=== PATIENT | female | born 1980 | race Caucasian/White ===

== ENCOUNTER 2017-11-03 13:16 | Observation (INO) ==
[2017-11-03 13:53] VITALS: RESP 16
--- NOTE | 2017-11-03 14:42 | Emergency Department Report ---
Female Urogenital HPI - General Chief complaint: Urogenital-Female Stated complaint: uti Time Seen by Provider: 11/03/17 14:10 Source: patient Mode of arrival: ambulatory Limitations: no limitations - History of Present Illness HPI Narrative: Pt presents with a UTI that was diagnosed 4 days ago. Pt began Bactrim 3 days ago and has been taking it regularly. Pt reports she is noting increased pain, bleeding, and a mucous in her urine. She denies fever, N/V/D but does report an increased weakness. MD Complaint: "UTI" Onset (ago): day(s) Urinary Symptoms: dysuria, urgency, frequency, hematuria, flank pain Associated symptoms: denies other symptoms - Related Data Home Medications Medication Instructions Recorded Confirmed Acetaminophen [Acetaminophen Extra 1,000 mg PO Q6H PRN 10/30/17 11/03/17 Strength] Diphenoxylate HCl/Atropine 1 each PO QID PRN 10/30/17 11/03/17 [Lomotil 2.5-0.025 mg Tablet] Multivitamin [Multivitamins] 1 tab PO DAILY 10/30/17 11/03/17 Dicyclomine [Bentyl] 10 mg PO BID PRN 11/03/17 11/03/17 Lidocaine For Magic Mouthwash 5 ml PO QID PRN 11/03/17 11/03/17 [Xylocaine Viscous] Previous Rx's Medication Instructions Recorded Hydrocodone/APAP 5/325 [Evans 1 - 2 tab PO Q4-6HR PRN #20 tab 10/30/17 5/325] Sulfamethox/Tmp [Bactrim Ds] 1 tab PO BID #14 tab 10/30/17 Allergies Allergy/AdvReac Type Severity Reaction Status Date / Time amoxicillin AdvReac Severe Hives Verified 11/03/17 14:00 Review of Systems All systems: reviewed and negative except as stated Constitutional: Reports: as per HPI Gastrointestinal: Reports: as per HPI Genitourinary: Reports: as per HPI Musculoskeletal: Reports: as per HPI PFSH Patient Stated Medical History Other Cardiology Yes: dextrocardia Ulcer Yes: more of stomach removed, corrected this Now UNKNOWN - STATES POSSIBLY Other Reproductive Yes: miscarriage Surgical History: *Gastric surgery x2 - Social History Smoking status: Former smoker Physical Exam - Limitations Limitations: no limitations - General General appearance: alert, in no apparent distress - Normal Exams: Head:: Normocephalic without trauma Eyes:: Pupils are PERRLA w/ EOMI Chest/Respirations:: Clear all rosas, with good airflow Cardiovascular:: Regular rate and rhythm, without murmur or gallop Abdomen:: Bowel sounds positive, soft, non-tender, non-distended Musculoskeletal:: No tenderness, or deformity noted, good range of motion, all extremities Integumentary:: No rashes Neurological:: Patient is alert, and oriented, cranial nerves, motor/sensory/ cerebellar, exams w/o gross deficits, to observation Psychiatric:: Patient exhibits, appropriate attention, emotion and affect Course Vital Signs Temperature 97.9 F 11/03/17 13:19 Pulse Rate 98 11/03/17 13:19 Respiratory Rate 18 11/03/17 13:19 Blood Pressure 125/72 11/03/17 13:19 Pulse Oximetry 99 11/03/17 13:19 Temperature 99 F 11/03/17 13:52 Pulse Rate 84 11/03/17 19:13 Respiratory Rate 16 11/03/17 17:16 Blood Pressure 120/69 11/03/17 19:13 Pulse Oximetry 99 11/03/17 19:13 Urogenital-Female - MDM Narrative Medical decision making narrative: Pt labs reviewed and compared with results from last Thursday. Noted improvement in renal function and urine however slight bump in WBC in addition to increase in pt symptoms and discomfort. PT given 1L NS as well as a gram of Rocephin and Toradol for pain. Results discussed with Dr Campbell who asks for lactate level to be obtained. Lactate called to Dr Campbell who asks to call telemed for admission. Spoke with Dr Young who will admit pt observation at this time. Plan discussed with pt and family who voice understanding of care. - Differential Diagnosis Likely: urinary tract infection, cervicitis, cystitis - Lab Data Attestation: I reviewed the patient's lab results. Result diagrams: 11/03/17 15:11/03/17 15: Lab Results 11/03/17 11/03/17 11/03/17 Range/Units 15: 15: 16:03 WBC 18.1 H (4.5-11.0) T/MM3 RBC 3.55 L (4.00-5.20) M/MM3 Hgb 10.1 L (12-16) GM/DL Hct 30.2 L (36-46) % MCV 85.1 (80-100) UM3 MCH 28.5 (26-34) UUG MCHC 33.4 (31-37) GM/DL RDW Std Deviation 50.7 H (36.9-50.2) FL Plt Count 126 L D (130-400) T/MM3 MPV 11.2 (9.4-12.4) UM3 Immature Gran % (Auto) Not performed Neut % (Auto) Not performed Lymph % (Auto) Not performed [place] % (Auto) Not performed Eos % (Auto) Not performed Baso % (Auto) Not performed Neut # (Auto) Not performed Lymph # (Auto) Not performed [place] # (Auto) Not performed Eos # (Auto) Not performed Baso # (Auto) Not performed Abs Immat Gran (auto) Not performed Neutrophils % (Manual) 80.0 H (33-66) % Band Neutrophils % 4.0 (0-6) % Lymphocytes % (Manual) 9.0 L (23-45) % Monocytes % (Manual) 7.0 (0-9.0) % Neutrophils # (Manual) 14.5 H (1.8-7.7) T/MM3 Band Neutrophils # 0.7 T/MM3 Lymphocytes # (Manual) 1.6 (1-4.8) T/MM3 Monocytes # (Manual) 1.3 H (0-0.8) T/MM3 Poikilocytosis 1+ Anisocytosis 1+ RBC Morph Comment Abnormal Turbidity < 20 (0-20) Sodium 142 (134-144) MEQ/L Potassium 4.1 (3.6-5) MEQ/L Chloride 112 H (98-107) MEQ/L Carbon Dioxide 18 L (22-30) MEQ/L Anion Gap 12 (5-15) MEQ/L BUN 15.0 (7-17) MG/DL Creatinine 0.7 (0.7-1.2) MG/DL GFR Calculation 95 BUN/Creatinine Ratio 21 (6-26) RATIO Glucose 74 (65-110) MG/DL Calculated Osmolality 273 (261-280) MOSM/KG Calcium 8.5 (8.4-10.2) MG/DL Total Bilirubin 0.50 (0.20-1.30) MG/DL Icterus Index < 2 (0-7) AST 14 (14-36) U/L ALT 20 (9-52) U/L Alkaline Phosphatase 238 H (38-126) U/L Total Protein 6.6 (6.3-8.2) G/DL Albumin 2.8 L (3.5-5.0) G/DL Globulin 3.8 H (2.4-3.6) G/DL Albumin/Globulin Ratio 0.7 L (1.1-2.2) RATIO Plasma Lactate (0.6-2.2) MMOL/L Specimen Hemolysis 17 (0-25) Ur Collection Type Urine, void-cc/notcc Urine Color Yellow (YELLOW) Urine Clarity Sl cloudy Urine pH 6.0 (5.0-8.0) Ur Specific [place] 1.020 (1.015-1.025) Urine Protein 1+ A (NEGATIVE) Urine Glucose (UA) Negative (NEGATIVE) Urine Ketones 2+ A (NEGATIVE) Urine Occult Blood 3+ A (NEGATIVE) Urine Nitrate Negative (NEGATIVE) Urine Bilirubin 1+ A (NEGATIVE) Urine Urobilinogen 0.2 (NORMAL) EU/DL Ur Leukocyte Esterase 2+ A (NEGATIVE) Urine RBC 10-20 H (0-3) /HPF Urine WBC 30-50 H (0-5) /HPF Ur Squamous Epith Cells 0-5 Urine Bacteria None seen (NEGATIVE) Ur Culture Indicated? Cult not indicated 11/03/17 Range/Units 18:18 WBC (4.5-11.0) T/MM3 RBC (4.00-5.20) M/MM3 Hgb (12-16) GM/DL Hct (36-46) % MCV (80-100) UM3 MCH (26-34) UUG MCHC (31-37) GM/DL RDW Std Deviation (36.9-50.2) FL Plt Count (130-400) T/MM3 MPV (9.4-12.4) UM3 Immature Gran % (Auto) Neut % (Auto) Lymph % (Auto) [place] % (Auto) Eos % (Auto) Baso % (Auto) Neut # (Auto) Lymph # (Auto) [place] # (Auto) Eos # (Auto) Baso # (Auto) Abs Immat Gran (auto) Neutrophils % (Manual) (33-66) % Band Neutrophils % (0-6) % Lymphocytes % (Manual) (23-45) % Monocytes % (Manual) (0-9.0) % Neutrophils # (Manual) (1.8-7.7) T/MM3 Band Neutrophils # T/MM3 Lymphocytes # (Manual) (1-4.8) T/MM3 Monocytes # (Manual) (0-0.8) T/MM3 Poikilocytosis Anisocytosis RBC Morph Comment Turbidity (0-20) Sodium (134-144) MEQ/L Potassium (3.6-5) MEQ/L Chloride (98-107) MEQ/L Carbon Dioxide (22-30) MEQ/L Anion Gap (5-15) MEQ/L BUN (7-17) MG/DL Creatinine (0.7-1.2) MG/DL GFR Calculation BUN/Creatinine Ratio (6-26) RATIO Glucose (65-110) MG/DL Calculated Osmolality (261-280) MOSM/KG Calcium (8.4-10.2) MG/DL Total Bilirubin (0.20-1.30) MG/DL Icterus Index (0-7) AST (14-36) U/L ALT (9-52) U/L Alkaline Phosphatase (38-126) U/L Total Protein (6.3-8.2) G/DL Albumin (3.5-5.0) G/DL Globulin (2.4-3.6) G/DL Albumin/Globulin Ratio (1.1-2.2) RATIO Plasma Lactate 0.6 (0.6-2.2) MMOL/L Specimen Hemolysis (0-25) Ur Collection Type Urine Color (YELLOW) Urine Clarity Urine pH (5.0-8.0) Ur Specific [place] (1.015-1.025) Urine Protein (NEGATIVE) Urine Glucose (UA) (NEGATIVE) Urine Ketones (NEGATIVE) Urine Occult Blood (NEGATIVE) Urine Nitrate (NEGATIVE) Urine Bilirubin (NEGATIVE) Urine Urobilinogen (NORMAL) EU/DL Ur Leukocyte Esterase (NEGATIVE) Urine RBC (0-3) /HPF Urine WBC (0-5) /HPF Ur Squamous Epith Cells Urine Bacteria (NEGATIVE) Ur Culture Indicated? Disposition Clinical Impression: Urinary tract infection Qualifiers: Urinary tract infection type: acute pyelonephritis Qualified Code(s): N10 - Acute pyelonephritis Disposition: To [facility] [place] Acute Care Condition: Stable Prescriptions: No Action Multivitamin [Multivitamins] 1 tab PO DAILY Hydrocodone/APAP 5/325 [Evans 5/325] 1 - 2 tab PO Q4-6HR PRN #20 tab PRN Reason: pain Sulfamethox/Tmp [Bactrim Ds] 1 tab PO BID #14 tab Lidocaine For Magic Mouthwash [Xylocaine Viscous] 5 ml PO QID PRN PRN Reason: Prn Orders Dicyclomine [Bentyl] 10 mg PO BID PRN PRN Reason: Prn Orders Diphenoxylate HCl/Atropine [Lomotil 2.5-0.025 mg Tablet] 1 each PO QID PRN PRN Reason: Diarrhea Acetaminophen [Acetaminophen Extra Strength] 1,000 mg PO Q6H PRN PRN Reason: Pain Referrals: Delbert Quintero DO [Family Provider] - Time of Disposition: 19:35 - Seen By: midlevel
[2017-11-03] MEDS ORDERED: CEFTRIAXONE (ER USE ONLY) 1 GM in NS 100 ML IV ONE (16:27)
[2017-11-03] MEDS ORDERED: NS 1,000 ML IV ONE (16:28)
[2017-11-03] MEDS: SALINE FLUSH 10ml SYRINGE IVF PRN ×4 (16:38→20:10)
[2017-11-03] MEDS ORDERED: KETOROLAC 30 MG/ML INJECTION IVP ONE (18:52)
[2017-11-03] MEDS ORDERED: ONDANSETRON 4 MG/2 ML INJECTION IVP PRN (19:39)
[2017-11-03] MEDS ORDERED: HYDROMORPHONE 2 MG/ML INJECTION IVP PRN (19:39)
[2017-11-03] MEDS ORDERED: IBUPROFEN 600 MG TABLET PO PRN (19:39)
[2017-11-03] MEDS ORDERED: ACETAMINOPHEN 325 MG TABLET PO PRN (19:39)
[2017-11-03] MEDS: D5-1/2NS 1,000 ML IV SCH (20:09)
--- NOTE | 2017-11-03 21:24 | History & Physical Report ---
History of Present Illness Date: 11/04/17 Chief complaint: abdominal pain HPI: Patient seen via telemedicine with nursing assistance on 11/03/2017. Ms. Levin is 37yo woman with h/o PUD s/p resection and then gastric bypass with agin 09/08/2017 [place] surgery again for ulcer disease who presents with 4-5 day h/o R sided abd to flank pain with no nausea or fevers/chills. Pain is worse with movement. 10/30/2017 ED visit diagnosed with UTI and dehydration (BUN 60 and creat 1.7 then) given bactrim. Ecoli from urine sensitive, and urine today with no bacteria but RBCs, WBCs, ketones. No other CP or SOB. Pain is worse with movement and at times sharp. No imaging to date. No recent med change. Last BM within the last 24 hours no blood. Has seen gross blood in urine though. In ED received 1L NS, Rocephin and note lactate was normal at 0.6 Review of Systems All systems PM: 10-point ROS was reviewed, no additional remarkable complaints except Past Medical History Patient Stated Medical History Other Cardiology Yes: dextrocardia Ulcer Yes: more of stomach removed, corrected this Hx Urinary Tract Infection Yes: current admit 11/03/17 Now UNKNOWN - STATES POSSIBLY Other Reproductive Yes: miscarriage Surgical History: *Gastric surgery x2 Family History Updates: mother and father alive. mother with kidney stones when asked specifically - Social History Smoking status: Former smoker Substance use type: does not use Housing: house Household members: friend(s) Medications Home Medications Medication Instructions Recorded Confirmed Type Acetaminophen [Acetaminophen Extra 1,000 mg PO Q6H PRN 10/30/17 11/03/17 History Strength] Diphenoxylate HCl/Atropine 1 each PO QID PRN 10/30/17 11/03/17 History [Lomotil 2.5-0.025 mg Tablet] Multivitamin [Multivitamins] 1 tab PO DAILY 10/30/17 11/03/17 History Dicyclomine [Bentyl] 10 mg PO BID PRN 11/03/17 11/03/17 History Lidocaine For Magic Mouthwash 5 ml PO QID PRN 11/03/17 11/03/17 History [Xylocaine Viscous] Allergies Allergy/AdvReac Type Severity Reaction Status Date / Time amoxicillin AdvReac Severe Hives Verified 11/03/17 14:00 Exam Vital Signs: Temperature 99 F 11/03/17 13:52 Pulse Rate 84 11/03/17 19:13 Respiratory Rate 16 11/03/17 17:16 Blood Pressure 120/69 11/03/17 19:13 Pulse Oximetry 99 11/03/17 19:13 Telemetry Rhythm: Sinus Rhythm - Constitutional Present: mild distress - Routine HEENT Exam Head: Present: normocephalic, atraumatic Eye: Present: EOMI - Routine Neck Exam Absent: JVD - Routine Respiratory Exam Present: CTA bilaterally. Absent: accessory muscle use - Routine Cardiovascular Exam Present: RRR, S1, S2, no murmur - Routine Abdominal Exam Present: soft, normoactive bowel sounds Comments: tender with no rebound or guarding - Routine Extremities Exam Absent: cyanosis, clubbing, edema - Routine Back/Spine/Pelvis Exam Back/Spine: Present: full ROM - Routine Skin Exam Present: intact - Routine Neurological Exam Present: alert, oriented X3, CN II-XII intact Results - Labs CBC & Chem 7: 11/04/17 04:46 11/04/17 04:46 Assessment and Plan (1) Abdominal pain Current visit: Yes Status: Acute (2) Leukocytosis Current visit: Yes Status: Acute Assessment and Plan: 1. Abd/flank pain for days uncertain etiology after prior UTI treated with Ecoli sensitive to the agent (bactrim). Plan IVF and PPI with supportive care overnight. CT abd/pelvis in the AM to r/o kidney stones or other with surgery 2 months ago. See 2. check urine test as well. 2. Leukocytosis--recheck in AM with low threshold for additional antibiotics if tani a fever, but normal lactate also reassuring 3. PUD--PPI IV for now. GI Prophylaxis: Protonix Resuscitation Status: Full Code - Time spent with patient Time with patient PN: 70 minutes - Physician Narrative Physician: Uyen Campbell MD Narrative: 11/04/2017- 10:[address] Campbell I have seen and examined the patient. I have reviewed the H&P above. Please see my additions below. Chief complaint: Right flank pain with recent UTI with Escherichia coli, hematuria History of present illness: Patient is a very pleasant 37-year-old female with history of gastric bypass and subsequent complications after gastric bypass requiring surgery for small bowel obstruction 2 and further stomach surgery most recently on 09/08/[address] gamboa at [facility]. The patient states she was doing well until October 30 when she developed, a sore throat and sores in her mouth. She went to the emergency room and strep swab and Monospot were negative. She did have an elevated white count of 16.8 with platelets of 53 and hemoglobin of 11.6. Neutrophils were 79% . Analysis revealed 3+ blood, positive nitrate, too numerous to count white cells, and 3+ bacteria. She had a BUN of 60 and creatinine of 1.6. She was started on Bactrim for UTI. Culture did reveal Escherichia coli which was sensitive to Bactrim and all other antibiotics tested. She did take her Bactrim as directed, but unfortunately has not felt any better. She does have a history of not absorbing pills well unless they are crushed. She continued to have hematuria and occasionally passing clots. She also developed right flank pain and continued to have significant fatigue and lethargy. She returned to the emergency room on 11/03/2016 and at that time white count was 18.1 with hemoglobin 10.1 and platelets of 126. Neutrophils were 80% and bands 4%. Lactate was normal at 0.6 and on repeat was 0.5. Renal function had normalized with BUN of 15 and creatinine of 0.7. Carbon dioxide was 18. She was admitted to observation status and started on Rocephin. Past medical history: dextrocardia for which she sees Dr. Mosqueda and has a Holter monitor 2 times per year Gastric bypass 2008 which required further stomach surgery August [address] gamboa at [place]. Small bowel obstruction requiring resection 2 Tonsillectomy and adenoidectomy Right ankle surgery Right thumb surgery History of stent placed in the stomach with subsequent removal History of difficult to control diabetes and hypertension requiring multiple hospitalizations. Her diabetes and hypertension resolved with weight loss after gastric bypass Peptic ulcer disease Family history significant for mother having kidney stones Social history: The patient is of Spanish. She rarely drinks alcohol. She is a former smoker. Comprehensive review of systems the patient states she felt like she had a yeast infection 2 weeks ago. Otherwise, cooperative review of systems is negative other than the above in history of present illness Medications and allergies are reviewed and unchanged Physical exam The patient is a very pleasant 37-year-old female in no acute distress. HEENT reveals sclerae to be anicteric, pupils are equal, oropharynx is moist, she does not have any oral lesions today. Neck is supple. Chest is clear to auscultation. Cardiovascular reveals a regular rate and rhythm. Abdomen is soft with some mild right-sided abdominal tenderness. Bowel sounds are normoactive. Back exam reveals CVA tenderness. Extremities are free of clubbing, cyanosis or edema. Psychiatric reveals a normal affect. Neurologic reveals no focal deficits. Skin is warm and dry and without rashes. Lab today Sodium 141, potassium 3.6, chloride 111, dioxide 20, BUN 12, creatinine 0.7, glucose 104. Lipase is 97. White count 13.7 down from 18.1. Hemoglobin 8.7 down from 10.1. MCV is normal at 85. Platelets are 134 up from 126. Type of Exam(s): CT abdomen pelvis w con Reason for Exam(s): abd pain Indication: abd pain PROCEDURE: CT abdomen pelvis w con: Encounter: Initial Comparison: None Technique: Axial CT images were performed through the abdomen and pelvis after the administration of intravenous contrast. Coronal and sagittal two-dimensional reformats. Automated Exposure Control and Iterative Reconstruction dose reducing techniques were utilized. Contrast: Omnipaque 300 89 mL Findings: The lung bases are grossly clear. The liver is normal. The gallbladder is surgically absent. Postoperative changes in the stomach. The spleen is normal. The pancreas is grossly normal. Right kidney is abnormal with mild perinephric stranding and multiple irregular low-attenuation foci present. The largest in the lower pole measures 3.4 x 2.7 cm in diameter on axial image #52. Smaller lesion in the lateral interpolar area on coronal image 20 measures 3.1 cm in diameter. Additional area in the posterior interpolar region on image #44 measures 3.8 x 2.8 cm in size. The left kidney appears normal. No abdominal or pelvic lymphadenopathy. The bladder is grossly normal. Small amount of free pelvic fluid. Uterus is unremarkable for age. No evidence of a bowel obstruction. Multiple medication tablets noted in the colon. The appendix is not definitely seen. Bone windows show no lytic or blastic lesions. Impression: Abnormal appearance of the right kidney with findings most consistent with a pyelonephritis and multiple areas of intrarenal abscess. . Impression Right-sided hilar nephritis with multiple intrarenal abscesses the largest of which is 3.4 x 2.7 cm Escherichia coli UTI -culture obtained 10/30/2016. Pansensitive Hematuria Anemia Leukocytosis Possible malnutrition after gastric bypass Dextrocardia Poor by mouth absorption of pills Plan Rocephin was initiated. Will add IV Cipro. Discussed with Dr. Demar Mercado, urologist, he recommends interventional radiology for CT-guided drainage. Will transfer to the [facility] for CT-guided drainage. I did speak with Dr. Stafford with [facility] hospitalist group and she has accepted the patient in transfer The patient is in agreement with transfer. She may need anemia workup, not initiated during this hospital stay. Hospital Course Summary Disclaimer: The visit summary below is not to be considered part of the above Progress Note.
[2017-11-03] MEDS ORDERED: PANTOPRAZOLE 40 MG INJECTION IVP SCH (21:30)
[2017-11-03] MEDS: Oxycodone/Acetaminophen 5/325 1 TAB PO PRN (22:22)
[2017-11-04] MEDS: MORPHINE SULFATE 2mg INJECTION IVP PRN ×4 (01:53→13:56)
[2017-11-04] MEDS: Oxycodone/Acetaminophen 5/325 1 TAB PO PRN ×2 (04:51→11:05)
[2017-11-04] MEDS: D5-1/2NS 1,000 ML IV SCH (06:40)
[2017-11-04 07:38] VITALS: BP 117/69; PULSE 88; TEMP 98.3; O2SAT 100
[2017-11-04] MEDS ORDERED: SALINE FLUSH 10ml SYRINGE ONE (07:42)
[2017-11-04] MEDS ORDERED: IOHEXOL 300mg/ml 100ml INJECTION ONE (07:42)
--- NOTE | 2017-11-04 09:19 | CT Scan Report ---
Indication: abd pain PROCEDURE: CT abdomen pelvis w con: Encounter: Initial Comparison: None Technique: Axial CT images were performed through the abdomen and pelvis after the administration of intravenous contrast. Coronal and sagittal two-dimensional reformats. Automated Exposure Control and Iterative Reconstruction dose reducing techniques were utilized. Contrast: Omnipaque 300 89 mL Findings: The lung bases are grossly clear. The liver is normal. The gallbladder is surgically absent. Postoperative changes in the stomach. The spleen is normal. The pancreas is grossly normal. Right kidney is abnormal with mild perinephric stranding and multiple irregular low-attenuation foci present. The largest in the lower pole measures 3.4 x 2.7 cm in diameter on axial image #52. Smaller lesion in the lateral interpolar area on coronal image 20 measures 3.1 cm in diameter. Additional area in the posterior interpolar region on image #44 measures 3.8 x 2.8 cm in size. The left kidney appears normal. No abdominal or pelvic lymphadenopathy. The bladder is grossly normal. Small amount of free pelvic fluid. Uterus is unremarkable for age. No evidence of a bowel obstruction. Multiple medication tablets noted in the colon. The appendix is not definitely seen. Bone windows show no lytic or blastic lesions. Impression: Abnormal appearance of the right kidney with findings most consistent with a pyelonephritis and multiple areas of intrarenal abscess. .
[2017-11-04] MEDS ORDERED: METOCLOPRAMIDE 10mg/2ml INJECTION IVP PRN (10:13)
[2017-11-04] MEDS ORDERED: CIPROFLOXACIN IVPB 400 MG/200 ML BAG IV SCH (10:15)
[2017-11-04] MEDS ORDERED: POTASSIUM CHLORIDE INJ 20 MEQ in D5-1/2NS 1,000 ML IV SCH (10:17)
[2017-11-04] MEDS ORDERED: D5-1/2NS with KCL 20mEq 1,000 ML IV SCH (12:00)
[2017-11-04] MEDS ORDERED: CEFTRIAXONE 1 G in NS 50 ML IV SCH (17:00)
== END 2017-11-04 15:05 | disposition short-term general hospital (02) ==
LOC: ED 13:16 → MED 13:16 → SUATTDRO 19:55 → MED 20:00
PROVIDERS: ADMIT Hospitalist; ATTEND Internal Medicine